=== PATIENT | female | born 1990 | race Caucasian/White ===

== ENCOUNTER 2017-06-08 10:42 | Emergency (ER) | payer OTHER ==
[2017-06-08] MEDS ORDERED: NS 1,000 ML IV ONE ×2 (11:23→13:10)
[2017-06-08] MEDS ORDERED: fentaNYL 100 MCG/2 ML INJ IVP ONE ×2 (11:23→13:10)
[2017-06-08] MEDS ORDERED: ONDANSETRON 4 MG/2 ML VIAL IVP ONE ×2 (11:23→13:10)
--- NOTE | 2017-06-08 11:26 | EDPHY ---
H & P Time Seen by Provider: 06/08/17 11:06 HPI/ROS: CHIEF COMPLAINT: Abdominal pain, vomiting HISTORY OF PRESENT ILLNESS: 27-year-old female presents to the emergency department with lower abdominal pain. The pain began 2 days ago. She has been vomiting for the last 24 hr. She has a history of endometriosis as well as polycystic ovarian syndrome. She has had multiple laparoscopies to help remove scar tissue. She has worsening pain on her right lower side compared to her left lower side. No diarrhea. No urinary symptoms. No chest pain or difficulty breathing. No reported fever. Last menstrual period was approximately 6 weeks ago. She does not think that she is . REVIEW OF SYSTEMS: Constitutional: No fever, no chills. Eyes: No double or blurry vision. ENT: No sore throat. Respiratory: No cough, no shortness of breath. Cardiac: No chest pain. Gastrointestinal: As above. No diarrhea Genitourinary: No dysuria. Musculoskeletal: No neck or back pain. Skin: No rashes. Neurological: No headache. Past Medical/Surgical History: Endometriosis, polycystic ovarian syndrome, laparoscopies Social History: Recently moved here from [place] Smoking Status: Current every day smoker Physical Exam: General Appearance: Alert, no distress. Afebrile. Boyfriend at bedside. Eyes: Pupils equal and round. Extraocular motions are all intact. ENT: Mouth: Mucous membranes moist. Respiratory: No wheezing, rhonchi, or rales, lungs are clear to auscultation. Cardiovascular: Regular rate and rhythm. Gastrointestinal: Abdomen is soft. She has tenderness with palpation in her right lower quadrant. She also has pain with palpation in the left lower quadrant. Also having pain in suprapubic area. There is no rebound, guarding or masses noted. Neurological: Alert and oriented x 3, cranial nerves II through XII grossly intact Skin: Warm and dry, no rashes. Musculoskeletal: Nontender to palpate along the cervical, thoracic or lumbar spine. Neck is supple. Extremities: Full range of motion and no peripheral edema. Psychiatric: Patient is oriented X 3, there is no agitation. Constitutional: Initial Vital Signs Temperature (C) 36.6 C 06/08/17 10:47 Heart Rate 84 06/08/17 10:47 Respiratory Rate 16 06/08/17 10:47 Blood Pressure 132/84 H 06/08/17 10:47 O2 Sat (%) 96 06/08/17 10:47 O2 Delivery Mode Room Air Allergies/Adverse Reactions: "oral antibiotics" Allergy (Uncoded 06/08/17 10:46) Home Medications: Medication Instructions Recorded Cephalexin [Keflex] 500 mg PO QID #28 cap 06/08/17 metFORMIN HCL [Glucophage 500 mg 500 mg PO 06/08/17 (*)] Medical Decision Making - Diagnostics Imaging Results: Imaging Impressions Pelvic/Renal Ultrasound 06/08/17 11:23 Impression: Complex, probably hemorrhagic left ovarian cystic structure could represent either an involuting cyst or a endometrioma. Results called and discussed with NARA REYES on 06/08/2017 at 12:[address] 06/08/17 13:13 Impression: 1. Heterogeneous attenuation in the right lower quadrant is probably related to endometriosis, although acute appendicitis should be excluded clinically. 2. See above report for additional findings. Results called and discussed with Nara reyes PA-C, on June 08, 2017 at 1434 hours. Imaging: Discussed imaging studies w/ house calls nurse practitioner Radiologist, I viewed and interpreted images myself ED Course/Re-evaluation: 27-year-old female presents to the emergency department with abdominal pain and vomiting. Patient has significant history of endometriosis as well as polycystic ovarian syndrome. She has had numerous laparoscopies due to endometriosis. White blood cell count was within normal limits. Chemistries were normal. Her urine reveals 25-50 white blood cells with 15-25 red blood cells and 2+ bacteria. Urine cultures pending. Patient had a pelvic ultrasound which revealed evidence of endometrioma on the left ovary. She had normal blood flow to both ovaries. No evidence of torsion. The patient continued to have ongoing right upper quadrant abdominal pain. I did also perform a bimanual examination and she did have some pain with palpation over the right adnexa. No palpable adnexal fullness however. Given her ongoing abdominal pain, I recommended CT imaging of the abdomen pelvis to evaluate for possible acute appendicitis. I discussed the pros and cons of CT imaging including radiation exposure and the patient agreed. CT imaging of the abdomen pelvis was inconclusive and did not revealed feel a normal versus abnormal appendix. I spoke with the on-call general surgeon, Dr. Cameron Smith, who also evaluated the patient's CT scan and came to evaluate the patient. He does not feel that this is acute appendicitis. He recommended follow-up with OBGYN and be discharged home. Patient was comfortable with this plan. Urinalysis did reveal signs of infection. Urine cultures pending. The patient has numerous antibiotic allergies including doxycycline, Bactrim, clindamycin, and Augmentin. However the patient has taken amoxicillin in the past and has been fine. She states that she has also taken Keflex in the past. Patient was given Keflex 500 mg four times daily for 1 week. The patient is comfortable being discharged home. She was given OBGYN referral. She will follow up if she develops worsening abdominal pain or if she feels worse in any way. The case was also discussed with Dr. Abdifatah Bynum, secondary supervising physician who agreed with treatment and plan. Differential Diagnosis: Including but not limited to urinary tract infection, pyelonephritis, kidney stone, ovarian cyst, ovarian torsion, endometriosis, acute appendicitis - Data Points Laboratory Results: Laboratory Results 06/08/17 11:20 06/08/17 11:20 06/08/17 06/08/17 06/08/17 12:30 11:20 11:20 WBC RBC Hgb Hct MCV MCH MCHC RDW Plt Count MPV Neut % (Auto) Lymph % (Auto) [place] % (Auto) Eos % (Auto) Baso % (Auto) Nucleat RBC Rel Count Absolute Neuts (auto) Absolute Lymphs (auto) Absolute Monos (auto) Absolute Eos (auto) Absolute Basos (auto) Absolute Nucleated RBC Immature Gran % Immature Gran # Sodium 140 mEq/L mEq/L (134-144) Potassium 3.8 mEq/L mEq/L (3.5-5.2) Chloride 97 mEq/L mEq/L (97-110) Carbon Dioxide 28 mEq/l mEq/l (22-31) Anion Gap 15 mEq/L mEq/L (8-16) BUN 10 mg/dL mg/dL (7-23) Creatinine 0.6 mg/dL mg/dL (0.6-1.0) Estimated GFR > 60 Glucose 98 mg/dL mg/dL (70-100) Calcium 9.4 mg/dL mg/dL (8.5-10.4) Beta HCG, Qual NEGATIVE Urine Color JUSTIN Urine Appearance HAZY Urine pH 8.0 H (5.0-7.5) Ur Specific [place] 1.020 (1.002-1.030) Urine Protein 2+ H (NEGATIVE) Urine Ketones NEGATIVE (NEGATIVE) Urine Blood NEGATIVE (NEGATIVE) Urine Nitrate POSITIVE H (NEGATIVE) Urine Bilirubin NEGATIVE (NEGATIVE) Urine Urobilinogen 2.0 EU H EU (0.2-1.0) Ur Leukocyte Esterase TRACE H (NEGATIVE) Urine RBC 10-15 /hpf H /hpf (0-3) Urine WBC 25-50 /hpf H /hpf (0-3) Ur Epithelial Cells 1+ /lpf /lpf (NONE-1+) Urine Bacteria 2+ /hpf H /hpf (NONE SEEN) Urine Mucus TRACE /lpf /lpf (NONE-1+) Urine Glucose NEGATIVE (NEGATIVE) 06/08/17 11:20 WBC 5.07 10^3/uL 10^3/uL (3.80-9.50) RBC 3.60 10^6/uL L 10^6/uL (4.18-5.33) Hgb 12.8 g/dL g/dL (12.6-16.3) Hct 36.1 % L % (38.0-47.0) MCV 100.3 fL H fL (81.5-99.8) MCH 35.6 pg H pg (27.9-34.1) MCHC 35.5 g/dL g/dL (32.4-36.7) RDW 12.6 % % (11.5-15.2) Plt Count 172 10^3/uL 10^3/uL (150-400) MPV 10.3 fL fL (8.7-11.7) Neut % (Auto) 63.2 % % (39.3-74.2) Lymph % (Auto) 24.5 % % (15.0-45.0) [place] % (Auto) 10.5 % % (4.5-13.0) Eos % (Auto) 1.0 % % (0.6-7.6) Baso % (Auto) 0.6 % % (0.3-1.7) Nucleat RBC Rel Count 0.0 % % (0.0-0.2) Absolute Neuts (auto) 3.21 10^3/uL 10^3/uL (1.70-6.50) Absolute Lymphs (auto) 1.24 10^3/uL 10^3/uL (1.00-3.00) Absolute Monos (auto) 0.53 10^3/uL 10^3/uL (0.30-0.80) Absolute Eos (auto) 0.05 10^3/uL 10^3/uL (0.03-0.40) Absolute Basos (auto) 0.03 10^3/uL 10^3/uL (0.02-0.10) Absolute Nucleated RBC 0.00 10^3/uL 10^3/uL (0-0.01) Immature Gran % 0.2 % % (0.0-1.1) Immature Gran # 0.01 10^3/uL 10^3/uL (0.00-0.10) Sodium Potassium Chloride Carbon Dioxide Anion Gap BUN Creatinine Estimated GFR Glucose Calcium Beta HCG, Qual Urine Color Urine Appearance Urine pH Ur Specific [place] Urine Protein Urine Ketones Urine Blood Urine Nitrate Urine Bilirubin Urine Urobilinogen Ur Leukocyte Esterase Urine RBC Urine WBC Ur Epithelial Cells Urine Bacteria Urine Mucus Urine Glucose Medications Given: Discontinued Medications Fentanyl (Sublimaze) 50 mcg IVP EDNOW ONE Stop: 06/08/17 11:24 Last Admin: 06/08/17 11:32 Dose: 50 mcg Fentanyl (Sublimaze) 50 mcg IVP EDNOW ONE Stop: 06/08/17 13:11 Last Admin: 06/08/17 13:16 Dose: 50 mcg Sodium Chloride (Ns) 1,000 mls @ 0 mls/hr IV ONCE ONE PRN Reason: Wide Open Stop: 06/08/17 11:24 Last Admin: 06/08/17 11:31 Dose: 1,000 mls Sodium Chloride (Ns) 1,000 mls @ 0 mls/hr IV ONCE ONE PRN Reason: Wide Open Stop: 06/08/17 13:11 Last Admin: 06/08/17 13:15 Dose: 1,000 mls Ketorolac Tromethamine (Toradol) 30 mg IVP EDNOW ONE Stop: 06/08/17 15:05 Last Admin: 06/08/17 15:14 Dose: 30 mg Ondansetron HCl (Zofran) 4 mg IVP EDNOW ONE Stop: 06/08/17 11:24 Last Admin: 06/08/17 11:32 Dose: 4 mg Ondansetron HCl (Zofran) 4 mg IVP EDNOW ONE Stop: 06/08/17 13:11 Last Admin: 06/08/17 13:16 Dose: 4 mg Departure - Departure Disposition: Home, Routine, Self-Care Clinical Impression: Abdominal pain Qualifiers: Abdominal location: right lower quadrant Qualified Code(s): R10.31 - Right lower quadrant pain Urinary tract infection Qualifiers: Urinary tract infection type: acute cystitis Hematuria presence: without hematuria Qualified Code(s): N30.00 - Acute cystitis without hematuria Condition: Good Instructions: Urinary Tract Infection in Women (ED), Acute Abdominal Pain (ED) Additional Instructions: Keflex as prescribed for 1 week. Call [phone] for the results of your urine culture in 48 hr. Referrals: Vy Villarreal DO [Doctor of Osteopathy] - 1-2 days without fail (OBGYN on-call ) Prescriptions: Cephalexin [Keflex] 500 mg PO QID #28 cap
[2017-06-08 11:32] LABS: PLATELET COUNT 172 10^3/uL (150-400)
[2017-06-08] MEDS ORDERED: IOPAMIDOL (ISOVUE-300) 100 ML BTL ONE (13:26)
[2017-06-08] MEDS ORDERED: KETOROLAC 30 MG/1 ML SDV IVP ONE (15:04)
[2017-06-08 16:14] VITALS: O2SAT 96
[2017-06-08] MEDS ORDERED: CEPHALEXIN 500MG PREPACK#4 BTL TAKEHOME ONE (16:22)
[2017-06-08 16:35] VITALS: BP 131/78; PULSE 74; RESP 18; TEMP 98.1
--- NOTE | 2017-06-08 20:38 | GCON ---
[f rep st] CONSULTATION DATE OF CONSULTATION: 06/08/2017 REFERRING PHYSICIAN: MARIVEL Yu REASON FOR EVALUATION: Rule out appendicitis. HISTORY OF PRESENT ILLNESS: 27-year-old female with a significant history for type 2 diabetes as well as polycystic ovarian syndrome. She has undergone 4 prior abdominal laparoscopies with ovarian cyst excisions while living in [place]. She recently relocated to [place] to be with her fiance. She presents to the emergency room with a 2-day history of worsening generalized lower abdominal pain. She reports that her pain initially started within her pelvis. They describe this acutely exacerbating after having intercourse. Throughout the next 48 hours, the pain has worsened, also involving her right lower quadrant this bringing her the emergency room for further assessment today. She describes a couple of episodes of emesis yesterday. She has been hungry. She has chronic constipation and uses MiraLAX. She denies any history of diarrhea. Her last period was approximately 6 weeks ago. She often requires medical stimulation for menstrual cycles. She has not established care with a [facility] here. She reports that she still has her appendix. Car ride was uncomfortable over bumps. She denies fevers or chills. She does feel that her pain is similar to her prior ovarian cysts, albeit, somewhat more intense. She also notes that her pain radiates down into her right leg which is something new for her. She also has recent lower back pain without numbness or tingling or lower extremity weakness. She has no specific voiding complaints or bloody urine. Pelvic US and manual exam were especially uncomfortable. PAST MEDICAL HISTORY: Type 2 diabetes, polycystic ovarian syndrome. PAST SURGICAL HISTORY: Laparoscopy x4. MEDICATIONS: None. Metformin has previously been recommended. ALLERGIES: Doxycycline, Cipro. SOCIAL HISTORY: Moderate alcohol, moderate tobacco. She is a body rub artist. FAMILY HISTORY: Unremarkable. REVIEW OF SYSTEMS: Notable for chronic pelvic pains as noted above. LABS: White count 5, hemoglobin 13, platelets of 172. Electrolytes within reference range. test negative. Urinalysis 25-50 white cells, 1+ epithelial cells, trace leukocyte esterase, positive nitrites. Pelvic US: Probable left ovarian endometrioma vs involuting cyst, multiple right ovarian cysts. CT abdomen: No definitively visualized appendix. No secondary signs of appendicitis, fluid, or inflammation noted. Heterogeneous pelvic mass inclusive of endometrium and ovary is present. IMPRESSION: 1. Abdominal pain. 2. Significant history for polycystic ovarian syndrome and endometriosis. 3. Abnormal urinalysis with normal white count and no fever. 4. Lower clinical suspicion for acute appendicitis. Suspect symptoms most likely related to endometriosis/ovarian cystic disease. An appendiceal endometrioma could also be a possibility. RECOMMENDATIONS: 1. Recommend conservative measures at this point with continued clinical followup. If symptoms fail to improve, consideration for diagnostic laparoscopy would be considered at that time. She should entertain an appendectomy should she undergo any future laparoscopies to facilitate superintendent terminal follow-up. 2. Recommend gynecologic followup in the interim time with further superintendent terminal pelvic recommendations as per them. 3. Findings and recommendations were discussed with the patient, fiancee, and emergency room provider as well as radiologist on-call. 4. Antibiotics for possible UTI appropriate in this setting. /[id number]/MODL MTDD
== END 2017-06-08 16:46 | disposition home or self-care (01) ==
PROC: 3E0337Z Introduction of Electrolytic and Water Balance Substance into Peripheral Vein, Percutaneous Approach (ICD-10-PCS; principal; 2017-06-08)
DX: N30.00 Acute cystitis without hematuria (principal); B96.20 Unspecified Escherichia coli [E. coli] as the cause of diseases classified elsewhere; F17.200 Nicotine dependence, unspecified, uncomplicated
CPT/HCPCS: 96374; J1885; J2405; J3010; Q9967